=== PATIENT | male | born 1940 | race Caucasian/White ===

== ENCOUNTER → 2016-09-15 | Day surgery (SDC) | payer MEDICARE ==
[~2016-09-15] MED LIST: BUPIVACAINE/EPINEPHRINE 0.25% 50 ML VIAL ONE; KETOROLAC TROMETHAMINE 30 MG/ML (IVP) VIAL IV PUSH ONE; LACTATED RINGER'S 1000 ML INJ 1,000 ML ONE; MIDAZOLAM HCL 2 MG/2 ML VIAL ONE; ONDANSETRON HCL 4 MG/2 ML VIAL IV PUSH ONE; PROPOFOL 200 MG/20 ML AMP IV ONE; SODIUM CHLORIDE 0.9% INJ 10 ML ONE; ceFAZolin 2 GM PREMIX 50 ML ONE
--- NOTE | 2016-09-15 17:05 | TN ---
cc: TEVIN WILLIS M.D. DATE OF SURGERY: 09/15/2016 PREOPERATIVE DIAGNOSIS Right lower quadrant ventral hernia. POSTOPERATIVE DIAGNOSIS Right lower quadrant ventral hernia. PROCEDURE Laparoscopic transabdominal repair right lower quadrant hernia with [place] dual mesh 7 x [address] Tevin Willis. SOFTWARE PROJECT LEAD RAYNA Faustin. ANESTHESIA General. INDICATIONS This is a very pleasant 76-year-old gentleman who had undergone umbilical and bilateral laparoscopic inguinal hernia repairs with mesh. At the time he had what appeared to be a high indirect inguinal hernia on the right side and this was thought to have been covered and repaired with the mesh previously placed. Unfortunately, the patient had the persistence of the hernia defect and plans were made for laparoscopic transabdominal repair. INTRAOPERATIVE FINDINGS About a 3 cm hernia defect with incarcerated peritoneum and preperitoneal fat. The hernia contents were reduced and the hernia defect broadly covered with a 7 x 10 x 1 piece of [place] dual mesh. Estimated blood loss less than 5 mL. 20 cc of Exparel mixed evenly with saline was injected for a block of the area of dissection and surgery. DESCRIPTION OF PROCEDURE IN DETAIL The patient was identified as Carson Birch, taken to the operating room and placed in supine position. Sequential compression devices were placed on bilateral lower extremities. Following induction of adequate general endotracheal anesthesia, the patient's abdomen was prepped and draped in the usual sterile fashion with Betadine and an Ioban drape. A timeout procedure was performed. Following completion of timeout procedure to everyone's satisfaction within the room, 0.25% Marcaine with epinephrine was placed into the three trocar sites. Infraumbilical transverse scar was reopened with a scalpel and dissection continued posteriorly to the level of the mesh in the infraumbilical location. Inferior to the mesh to its inferior border was incised, allowing for entry in peritoneal cavity with the surgeon's finger. The [employer] Gabriel trocar was placed in the peritoneal cavity, its balloon inflated with CO2 insufflation until a level of 15 mmHg ensued. The patient in steep Trendelenburg position, turned to the left, a right lower quadrant hernia defect was identified and there were no incarcerated contents except for peritoneum and preperitoneal fat. The superolateral border of the mesh, which had been placed laparoscopic preperitoneal, was present at the 7-9 o'clock position. Two 5 mm trocars were placed, one inferior midline, the other in the right midabdomen under direct laparoscopic view after incision of the skin with a scalpel. Attention was turned first to opening the peritoneum and removing the peritoneum and preperitoneal fatty tissue from the hernia defect. In doing so, the mesh between the 7 and 9 o'clock position was mobilized off of the abdominal wall. Scissor electrocautery and blunt dissection was used. A photograph was taken of the hernia defect. It measured about 3 cm in size. The peritoneum was freed up from the surrounding abdominal wall, and a ruler was used to measure the freed up peritoneum as a 7 x 10 cm opening. From a 10 x 15 x 1 piece of [place] dual mesh, an oval-shaped 7 x 10 cm piece was made and marked on the smooth side of the mesh, it was rolled, placed in the peritoneal cavity, unrolled, and tacked in a double crown technique surrounding the hernia defect with broad coverage in all directions. The peritoneum was then returned over the top of the mesh with the ProTack device. There was redundant peritoneum due to the hernia. This broadly covered and beautifully repaired the hernia in the right lower quadrant. There were no intraperitoneal injuries or abnormalities. Trocars were removed under direct visualization. There was no evidence of bleeding from trocar sites. The abdomen was desufflated, the infraumbilical port was then removed. Prior placement of mesh, the 40 cc of Exparel saline mixture was injected diffusely around the area of hernia defect and in the area of proposed mesh placement for a field block. Exparel was placed all the way from the peritoneal lining through the layers of the abdominal wall to the subcutaneous space. The infraumbilical fascial defect was closed with interrupted 0 Vicryl sutures. Port sites were irrigated copiously with saline. Skin incisions were approximated with 4-0 Monocryl subcuticular sutures. Dressings were applied with Mastisol, half-inch brown Steri-Strips. The patient tolerated the procedure without apparent complication. Sponge, needle and instrument counts were correct at the end of the case. this case was assisted by my nurse practitioner. The specific skill set of an HYDRAULIC GOVERNOR ASSEMBLER was medically necessary to complete the procedure in a safe efficient manner. During the surgery, the surgical services manager was at the back table providing appropriate instruments while the nurse practitioner directly assisted my through the entirety of the procedure. MD JOSE Jackson/ROX /3:58 PM /4:20 PM MARE
== END | disposition home or self-care (01) ==
LOC: ESDC 12:45
PROVIDERS: ATTEND Surgery Trauma Surgery
DX: K43.9 Ventral hernia without obstruction or gangrene (principal)
CPT/HCPCS: 00752; 49652; C1781; J0690; J1885; J2250; J2405; J3010; J7120

== ENCOUNTER → 2016-11-04 | Day surgery (SDC) | payer MEDICARE ==
[~2016-11-04] MED LIST changes: +BUPIVACAINE HCL PF 0.5% 30 ML VIAL ONE; -BUPIVACAINE/EPINEPHRINE 0.25% 50 ML VIAL ONE; -KETOROLAC TROMETHAMINE 30 MG/ML (IVP) VIAL IV PUSH ONE; -SODIUM CHLORIDE 0.9% INJ 10 ML ONE
--- NOTE | 2016-11-07 11:08 | MP ---
cc: PAULINE THOMAS DATE OF SURGERY: 11/04/2016 SURGEON: Dr. Pauline Thomas RUBBER GOODS ASSEMBLER: None. 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 OPERATION: 1. Right foot second interspace neurectomy. 2. Right foot plantar Y to V skin plasty. 3. Flexor tenotomy second digit, right foot. ANESTHESIA: General. HEMOSTASIS Pneumatic ankle tourniquet, 250 mmHg for 79 minutes. ESTIMATED BLOOD LOSS: Less than 5 mL MATERIALS USED Include 3-0 Monocryl, 3-0 Prolene INJECTABLES 10 cc of 0.5% Marcaine plain and 1 cc of dexamethasone. COMPLICATIONS None INDICATIONS Mr. Birch is a patient well known to me who has been exhibiting neuroma pain for over a year now. He has had several cortisone injections which were helpful but very short lived, and he has elected to have surgical intervention at this time. The patient also has a scar contracture on the plantar aspect of his foot from an old childhood injury which causes deformity to the digit, which we will also repair at this time. 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 The consent was signed. The procedure was explained. No guarantees were given. PROCEDURE: Under mild sedation, the patient was brought to the operating room, placed on the operating room table in supine position. Following IV sedation pneumatic ankle tourniquet was placed around the right ankle. The foot was then scrubbed, prepped and draped in the usual aseptic manner. An Esmarch bandage was used to exsanguinate the right foot and attention was directed to the dorsal aspect of the second interspace. A linear longitudinal incision was created starting at the web space of the second and third digits, and extending proximally approximately 3 inches, taken through skin and subcutaneous tissue with care being taken to identify and retract any vital neurovascular structures. Dissection was taken deep to the deep transverse intermetatarsal ligament where the plantar nerve could be appreciated and was noted to be bulbous distally at its bifurcation point. Medial and lateral branches were traced and cut at the most distal aspect. The trunk was then traced to the most proximal aspect and severed as well. It was sent to pathology for further evaluation. The area was then flushed with copious amounts of sterile saline. The deep and subcutaneous tissues were closed with 3-0 Prolene. The skin was closed with 3-0 Monocryl. It is of note that even with severing the DTIL, the second and third metatarsals remain very closely intact and not much increase in the second IM angle was appreciated. Attention was then directed to the plantar aspect of the second MPJ where there was an obvious scar contracture noted, interplantar flexor deformity of the second digit. Y to V incision was created, deepened through skin and subcutaneous tissue, care being taken to identify and retract any vital neurovascular structures and keep the skin flaps full thickness. The flexor tendon then required a tenotomy in order to relax the digit enough to repair the skin contracture. The area was then flushed with copious amounts of sterile saline. V to Y skin plasty was sutured in a lengthened position with the distal aspect now being longer and allowing a relaxation and a smooth plantar flexion of the second digit. The skin was closed with 3-0 Prolene with minimal tension on the skin flap. The toe was very rectus at the time of surgery with only a slight bend in the PIPJ which is secondary to arthritis most likely, 10 cc of 0.5% Marcaine plain was injected around the surgical site, and 1 cc of dexamethasone was injected into the second interspace. The foot was then cleansed and dressed with Adaptic, 4x4s, Sangeeta and George wrap. The pneumatic ankle tourniquet was released and there was a prompt hyperemic response to all digits of the right foot. The patient tolerated the procedure and the anesthesia well. He will recover in the PACU for a period of time before being discharged home. Pauline BRUSH/ROBERT /9:37 AM /10:55 AM
== END | disposition home or self-care (01) ==
LOC: ESDC 06:54
PROVIDERS: ATTEND Podiatrist Foot & Ankle Surgery
DX: G57.61 Lesion of plantar nerve, right lower limb (principal); M20.5X1 Other deformities of toe(s) (acquired), right foot
CPT/HCPCS: 00400; 01470; 14040; 28080; 28232; 88304; J0690; J2250; J2405; J3010; J7120